=== PATIENT | female | born 1945 | race Caucasian/White ===

== ENCOUNTER 2019-09-07 17:30 | Emergency (ER) | payer BC, OTHER ==
[~2019-09-07] VITALS: Ht 157.5 cm; Wt 57.6 kg
[~2019-09-07 17:30] MED LIST: FEXO180T16 PO; HORMONE PATCH TP
[2019-09-07 18:01] VITALS: BP_SYST 177
[2019-09-07] MEDS ORDERED: HYDROcodone/ACETAMIN 7.5-325 MG TAB PO ONE (18:30)
[2019-09-07 19:32] VITALS: BP_SYST 157
== END 2019-09-07 19:32 | disposition home or self-care (01) ==
LOC: SED 17:30
DX: S52.502A Unspecified fracture of the lower end of left radius, initial encounter for closed fracture (principal); S52.602A Unspecified fracture of lower end of left ulna, initial encounter for closed fracture; S93.402A Sprain of unspecified ligament of left ankle, initial encounter; I10 Essential (primary) hypertension; Z88.2 Allergy status to sulfonamides; Z88.0 Allergy status to penicillin; Z79.899 Other long term (current) drug therapy; W01.0XXA Fall on same level from slipping, tripping and stumbling without subsequent striking against object, initial encounter; Y93.A1 Activity, exercise machines primarily for cardiorespiratory conditioning; Y92.89 Other specified places as the place of occurrence of the external cause; Y99.8 Other external cause status
CPT/HCPCS: 73090; 99284